=== PATIENT | male | born 1965 | race Caucasian/White ===

== ENCOUNTER 2024-01-19 12:06 | Outpatient (OUT) | payer OTHER, SELFPAY ==
[2024-01-19 12:53] LABS: Chol HDL Ratio 3.9; Cholesterol 161 mg/dL (<=200); HDL Cholesterol 41 mg/dL (40-60); LDL Cholesterol Calculated 97.4 mg/dL; Triglycerides 113 mg/dL (<=150); VLDL CHOLESTEROL 22.6 mg/dL
[2024-01-19 13:21] LABS: Prostate Specific Antigen Scrn 1.09 ng/mL (<=4.00)
== END 2024-01-19 12:07 | disposition home or self-care (01) ==
LOC: LAB 12:10
PROVIDERS: PCP Family Medicine; Visit Provider Family Medicine
DX: Z00.00 Encounter for general adult medical examination without abnormal findings (principal); Z12.5 Encounter for screening for malignant neoplasm of prostate
CPT/HCPCS: 36415; 80061; G0103

== ENCOUNTER 2025-01-24 14:03 | Outpatient (OUT) | payer OTHER, SELFPAY ==
--- OUTSIDE RECORDS SUMMARY | 2025-01-24 14:10 | XMS_ITS | Clinical Summary ---
Author Organization [facility] Healthcare Address [address] [place] [address] Care Team Providers Care Heel Attacher Name Role Phone Unavailable Primary Care Provider Unavailabl e Social History Tobacco UseTypesPacks/DayYears UsedDateSmoking Tobacco: Never AssessedSex and Gender InformationValueDate RecordedSex Assigned at BirthNot on fileLegal Sex Male05/18/2022 6:34 PM EDTGender IdentityNot on fileSexual OrientationNot on file Last Filed Vital Signs Vital SignReadingTime TakenCommentsBlood Wjhxijuv361/68003/30/2017 12:00 PM EST Pulse--Temperature--Respiratory Rate--Oxygen Saturation--Inhaled Oxygen Concentration--Dtiqbp11.6 kg (171 lb)03/30/2017 12:00 PM VIXVziirn017.2 cm (5' 7 )03/30/2017 12:00 PM ESTBody Mass Index26.78003/30/2017 12:00 PM EST Plan of Treatment Not on file
--- OUTSIDE RECORDS SUMMARY | 2025-01-24 14:10 | XMS_ITS | Clinical Summary ---
Author Organization [facility] Address [address], [address] [place] [address] Care Team Providers Care Asbestos Abatement Technician Name Role Phone Unavailable Primary Care Provider Unavailabl e Allergies No known active allergies Medications No known medications Family History Medical HistoryRelationNameCommentsHeart DiseaseMaternal UncleRelationNameStatus CommentsMaternal Uncle Social History Tobacco UseTypesPacks/DayYears UsedDateSmoking Tobacco: NeverAlcohol UseStandard Drinks/WeekCommentsNo0 (1 standard drink = 0.6 oz pure alcohol)Sex and Gender InformationValueDate RecordedSex Assigned at BirthNot on fileLegal SexMale 04/15/2012 5:50 PM ESTGender IdentityNot on fileSexual OrientationNot on file Last Filed Vital Signs Vital SignReadingTime TakenCommentsBlood Lghfrdlk773/76003/30/2016 8:15 AM EST Tzalp283803/30/2016 8:15 AM YNGBaytjgxsgst37.6 ??C (97.9 ??F)03/30/2016 8:15 AM ESTRespiratory Lsuk069703/30/2016 8:15 AM ESTOxygen Ibsiicikki54%03/30/2016 8:15 AM ESTInhaled Oxygen Concentration--Nasvru35.5 kg (162 lb)03/29/2016 7:28 PM EST Eszdyi127.2 cm (5' 7 )03/29/2016 7:28 PM ESTBody Mass Index25.37003/29/2016 7:28 PM EST Plan of Treatment Not on file Insurance Advance Directives * Full Code (Latest Code Status on File) Date ActivatedDate InactivatedComments03/29/2016 11:26 PM03/30/2016 7:38 PM
--- OUTSIDE RECORDS SUMMARY | 2025-01-24 14:12 | XMS_ITS | CCD ---
Author Organization [facility] Care Team Providers Care Launch Engineer Name Role Phone SLOANE, DR BERNARD Admitting Unavailable CRUZ, DR BERNARD Attending Unavailable GALLARDO, DR JAZMIN Ellis Primary Care Unavailable CRUZ, DR BERNARD Consulting Unavailable JENNIFER, DONALD Consulting Unavailable GALLARDO, DR JAZMIN Ellis Primary Care Unavailable PAY, DR LOCKWOOD Admitting Unavailable PAY, DR LOCKWOOD Attending Unavailable GRECHNY, REBECCA POWERS Consulting Unavailable Hawkins, Pattie Consulting Unavailable Kllance, Ayaka Consulting Unavailable SLOANE, DR BERNARD Admitting Unavailable CRUZ, DR BERNARD Attending Unavailable SAMI, DR JAZMIN Ellis Primary Care Unavailable CRUZ, DR BERNARD Consulting Unavailable CRUZ, DR BERNARD Admitting Unavailable CRUZ, DR BERNARD Attending Unavailable GALLARDO, DR JAZMIN Ellis Primary Care Unavailable CRUZ, DR BERNARD Consulting Unavailable MISC, DR CAMPOS Admitting Unavailable MISC, DR CAMPOS Attending Unavailable SAMI, DR JAZMIN Ellis Primary Care Unavailable MISC, DR CAMPOS Consulting Unavailable Gallardo, Jazmin Unavailable Problems Active Problems Problem ClassificationProblemDateDocumented DateEpisodic/ChronicDiverticulosis and diverticulitis (2 sources)Diverticulosis of intestine, part unspecified, without perforation or abscess without bleeding; Translations: [Diverticular disease of colon]Onset: 34-19-6498AhszadeFbidyhunsnbcy symptoms and ill-defined conditions (1 source)Other specified urinary incontinence; Translations: [OTHER SPEC URINARY INCONTINENCE]Onset: 80-25-8311HsoyfckQoenafsv; including migraine (4 sources)Headache; including migraine; Translations: [HEADACHE UNSPECIFIED] Onset: 82-44-9781Fqquhtsxxac of prostate (5 sources)Benign prostatic hyperplasia with lower urinary tract symptoms; Translations: [BENIGN PROSTATIC HYPERPLASIA W/LUTS]Onset: 89-54-1967Wijyzbm Inflammatory conditions of male genital organs (1 source)Chronic prostatitis; Translations: [CHRONIC PROSTATITIS]Onset: 72-23-0723OqvfywpNitrzspslgqpw (1 source)Generalized enlarged lymph nodes; Translations: [GENERALIZED ENLARGED LYMPH NODES]Onset: 38-67-3018HepwdefhSwbrc diseases of kidney and ureters (1 source)Acquired renal cystic disease; Translations: [Cyst of kidney, acquired]EpisodicOther nervous system disorders (1 source)Paresthesia of skin; Translations: [PARESTHESIA OF SKIN]Onset: 57-52-4420MtzirwkrHodnf screening for suspected conditions (not mental disorders or infectious disease) (2 sources)Patient encounter status; Translations: [Encounter for screening for malignant neoplasm of prostate]11-00-8444IuppihpdBimytuvkdlb; intervertebral disc disorders; other back problems (1 source)Lumbar spondylosis; Translations: [Spondylosis without myelopathy or radiculopathy, lumbar region]ChronicUnclassified (1 source)CONTACT W/AND (SUSP) EXPOS COVID-19; Translations: [CONTACT W/AND (SUSP) EXPOS COVID-19]Onset: 02-20-2021 Past or Other Problems Problem ClassificationProblemDateDocumented DateEpisodic/ChronicGenitourinary symptoms and ill-defined conditions (8 sources)Other retention of urine; Translations: [Feeling of incomplete bladder emptying]Onset: 17-21-2795NlcgmvvtUvexlyz and fatigue (1 source)Other fatigue; Translations: [OTHER FATIGUE]Onset: 76-48-3989Ibxgwjjo Other diseases of kidney and ureters (1 source)Cyst of kidney, acquired; Translations: [CYST OF KIDNEY ACQUIRED] Onset: 85-04-1762Qxvurcnv Results Test NameValueInterpretationReference RangeFacilityCBC AUTO DIFFon 05-10-2021 BASO #0.0 103/ulNormal0.0-0.1[facility] HospitalComment on above:Performed By: #### CBC #### [facility] [address] [address] [address] Alana Fernandezsophils/100 WBC (Bld)0.3 %Normal0.2-2.0[facility] Comment on above:Performed By: #### CBC #### [facility] [address] [address] [address] Alana Wolfe #0.1 103/ulNormal0.0-0.7The [facility] HospitalComment on above: Performed By: #### CBC #### [facility] [address] [place] [address] Dr. Alana Cyrosinophils/100 WBC (Bld)1.0 %Normal0.9-7.0[facility] Comment on above:Performed By: #### CBC #### [facility] [address] [place] [address] Dr. Alana Cyrrythrocyte distribution width (RBC) [Ratio]12.1 %Cdugvd87.0-15.0 The [facility] HospitalComment on above:Performed By: #### CBC #### [facility] [address] [place] [address] Dr. Alana OconnorHematocrit (Bld) [Volume fraction]45.7 %Zstzwf74.0-54.0The [facility] HospitalComment on above:Performed By: #### CBC #### [facility] [address] [place] [address] Dr. Alana OconnorHemoglobin (Bld) [Mass/Vol]16.0 g/uLKymale83.0-18.0The [facility] Centerment on above:Performed By: #### CBC #### [facility] [address] [place] [address] Dr. Alana Patel #0.01 10e3/ulNormal0.00-0.03The [facility] HospitalComment on above:Performed By: #### CBC #### [facility] [address] [place] [address] Dr. Alana Patel %0.1 %Normal0.0-0.5The [facility] HospitalComment on above: Performed By: #### CBC #### [facility] [address] [place] [address] Dr. Alana Flores #1.8 103/ulNormal1.2-3.8The [facility] HospitalComment on above:Performed By: #### CBC #### [facility] [address] [place] [address] Dr. Alana Bondsmphocytes/100 WBC (Bld)24.8 %Sbxjdh15.5-60.0The [facility] HospitalComment on above:Performed By: #### CBC #### [facility] [address] [place] [address] Dr. Alana MoraUAL DIFF REQNONormalThe [facility] HospitalComment on above: Performed By: #### CBC #### [facility] [address] [place] [address] Dr. Alana العراقي (RBC) [Entitic mass]31.1 hsYaplgt56.9-34.0The [facility] HospitalComment on above:Performed By: #### CBC #### [facility] [address] [place] [address] Dr. Alana العراقي (RBC) [Mass/Vol]35.0 g/yPTnzwcg54.9-35.2The [facility] HospitalComment on above:Performed By: #### CBC #### [facility] [address] [place] [address] Dr. Alana العراقي (RBC) [Entitic vol]88.7 yUNioeiu00.0-94.0The [facility] HospitalComment on above:Performed By: #### CBC #### [facility] [address] [place] [address] Dr. Alana Howard #0.5 103/ulNormal0.3-0.8The [facility] HospitalComment on above:Performed By: #### CBC #### [facility] [address] [place] [address] Dr. Alana Zarateocytes/100 WBC (Bld)6.6 %Normal1.7-12.0[facility] Comment on above:Performed By: #### CBC #### [facility] [address] [place] [address] Dr. Alana Moon #4.9 103/ulNormal1.4-6.5The [facility] HospitalComment on above:Performed By: #### CBC #### [facility] [address] [address] [address] Alana OconnorNeutrophils/100 WBC (Bld)67.2 %Bdoaqk53.0-75.0The [facility] on above:Performed By: #### CBC #### [facility] [address] [place] [address] Dr. Alana OconnorPlatelet mean volume (Bld) [Entitic vol]10.6 fLNormal9.5-13.5The [facility] HospitalComment on above:Performed By: #### CBC #### [facility] [address] [place] [address] Dr. Alana OconnorPLT189 103/ilHvqwwq481-962Mjm [facility] on above: Performed By: #### CBC #### [facility] [address] [place] [address] Dr. Alana OconnorRBC5.15 106/ulNormal4.70-6.10The [facility] on above:Performed By: #### CBC #### [facility] [address] [place] [address] Dr. Alana OconnorWBC7.3 103/ulNormal4.0-11.0The [facility] on above: Performed By: #### CBC #### [facility] [address] [place] [address] Dr. Alana Argueta 45-22-1069UQJ [Mass/Vol]mg/LNormal<=1.0The [facility] on above:Performed By: #### CRP, CMP #### [facility] [address] [place] [address] Dr. Alana OconnorCT CSPINE WO CONon [id number] CSPINE WO CONEXAMINATION: CT CSPINE WO CON HISTORY: Paresthesia COMPARISON: None. TECHNIQUE: CT Cervical spine without IV contrast. Coronal and sagittal reformations were performed. Dose reduction techniques were achieved by using automated exposure control and/or adjustment of mA and/or kV according to patient size and/or use of iterative reconstruction technique. FINDINGS: Straightening of the normal cervical lordosis of age indeterminate origin. Vertebral body heights and alignments exhibit no fracture. The dens and lateral masses of C1 are symmetric. Age-related intervertebral disc space narrowing, endplate, uncovertebral and facet changes. No prevertebral soft tissue edema. No gross irregularity of the visualized skull base. The mastoid air cells are pneumatized. The airway and lung apices are unremarkable. No irregularity of the thoracic inlet. The visualized subcutaneous soft tissues are unremarkable. Scattered nondiagnostic left greater than right submandibular lymph nodes. IMPRESSION: Straightening of the normal cervical lordosis of age indeterminate origin. This may be nondiagnostic secondary to patient's positioning. Electronically authenticated by: AYAKA CHRISTIANSON Date: 2021-05-10 18:48NoMer[facility] [address] Board[facility] HospitalCT HEAD WO CONon [id number] HEAD WO CONNONCONTRAST CT SCAN OF THE HEAD CT HEAD WO CON HISTORY: HEADACHE TECHNIQUE: Multiple axial images are taken from the level the vertex down to the base of the skull without the use of IV contrast. Images were then reconstructed in the sagittal and coronal planes. This exam was performed according to our departmental dose-optimization program which includes use of Automated Exposure Control, adjustment of the mA and/or kV according to patient size and/or use of iterative reconstruction technique. COMPARISON: None. FINDINGS: Brain Parenchyma: No intracranial mass. No intracranial hemorrhage. Anthony-white matter within expected limits of normal for patient's age. Posterior fossa: Normal. Midline shift: None Extra-axial fluid collection: None Ventricles: Normal. Mastoid air cells: Normal. Sinuses: Normal. Cranium: No depressed skull fracture. Soft tissues: Normal. Orbits: Normal. IMPRESSION: No noncontrast CT evidence for acute intracranial pathology. Electronically authenticated by: PATTIE HAWKINS Date: 2021-05-10 18:47No[address] [facility] Boardman HospitalPROF 14(COMP METB)on 29-45-1630Kwulabt [Mass/Vol]4.1 g/dLNormal 3.5-5.0The [facility] HospitalComment on above:Performed By: #### CRP, CMP #### [facility] [address] [place] [address] Dr. Alana OconnorAlbumin/Globulin [Mass ratio]1.4 {ratio}NormalThe [facility] HospitalComment on above:Performed By: #### CRP, CMP #### [facility] [address] [address] [address] Alana Albarado [Catalytic activity/Vol]97 U/WVxrvqn46-469Mqs [facility] HospitalComment on above:Performed By: #### CRP, CMP #### [facility] [address] [address] [address] Alana FerreiraT [Catalytic activity/Vol]25 U/JKypqky38-40Cpa [facility] HospitalComment on above:Performed By: #### CRP, CMP #### [facility] [address] [address] [address] Alana Stevenson gap [Moles/Vol]10.2 mmol/LNormalThe [facility] Comment on above:Performed By: #### CRP, CMP #### [facility] [address] [address] [address] Alana OconnorAST [Catalytic activity/Vol]17 U/IBefeqb62-84Jmq [facility] HospitalComment on above:Performed By: #### CRP, CMP #### [facility] [address] [address] [address] Alana OconnorBilirubin [Mass/Vol]0.5 mg/dLNormal0.2-1.3[facility] Comment on above:Performed By: #### CRP, CMP #### [facility] [address] [address] [address] Alana OconnorCalcium [Mass/Vol]8.2 mg/dLCritically low8.4-10.2The [facility] HospitalComment on above:Performed By: #### CRP, CMP #### [facility] [address] [address] [address] Alana OconnorChloride [Moles/Vol]105 mmol/UQekfav65-107Xbk [facility] Comment on above:Performed By: #### CRP, CMP #### [facility] [address] [address] [address] Alana OconnorCO2 [Moles/Vol]26.4 mmol/NFpyuaz01.0-30.0[facility] Comment on above:Performed By: #### CRP, CMP #### [facility] [address] [address] [address] Alana OconnorCreatinine [Mass/Vol]1.02 mg/dLNormal0.66-1.25The [facility] HospitalComment on above:Performed By: #### CRP, CMP #### [facility] [address] [address] [address] Alana CyrGFR-AF MOROCCAN>60Normal>=60The [facility] HospitalComment on above:Performed By: #### CRP, CMP #### [facility] [address] [address] [address] Alana CyrGFR-NON AF MOROCCAN>60Normal>=60The [facility] HospitalComment on above:Performed By: #### CRP, CMP #### [facility] [address] [address] [address] Alana OconnorGlobulin (S) [Mass/Vol]3.0 g/dLNormalThe [facility] HospitalComment on above:Performed By: #### CRP, CMP #### [facility] [address] [address] [address] Alana OconnorGlucose [Mass/Vol]122 mg/dLCritically pmvo54-679Zou [facility] HospitalComment on above:Performed By: #### CRP, CMP #### [facility] [address] [address] [address] Alana OconnorPotassium [Moles/Vol]3.6 mmol/LNormal3.4-5.0[facility] Comment on above:Performed By: #### CRP, CMP #### [facility] [address] [address] [address] Alana OconnorProtein [Mass/Vol]7.1 g/dLNormal6.1-8.2[facility] Comment on above:Performed By: #### CRP, CMP #### [facility] [address] [address] [address] Alana OconnorSodium [Moles/Vol]138 mmol/WOjurmc937-719Cyd [facility] Comment on above:Performed By: #### CRP, CMP #### [facility] [address] [address] [address] Alana Ronquillo nitrogen [Mass/Vol]19.0 mg/dLNormal9.0-20.0The [facility] HospitalComment on above:Performed By: #### CRP, CMP #### [facility] [address] [address] [address] Alana Ronquillo nitrogen/Creatinine [Mass ratio]18.6 mg/mgNormalThe [facility] HospitalComment on above:Performed By: #### CRP, CMP #### [facility] [address] [place] [address] Dr. Alana Mazariegos RATE WESTERGRENon 88-69-9506ZJV RATE2 mm/hrNormal<=20The [facility] HospitalComment on above:Performed By: #### SEDR #### [facility] [address] [place] [address] Dr. Alana OconnorAmbulatory Clinical Summaryon [id number] Clinical Summary{[id number]}CD:[id number] [facility] Regional HospitalPatient Educationon 13-48-1510Podgymo EducationUrology Benign Prostatic Hyperplasia Benign prostatic hyperplasia (BPH) is an enlarged prostate gland that is caused by the normal agingprocess and not by cancer. The prostate is a walnut-sized gland that is involved in the production of semen. It is located in front of the rectum and below the bladder. The bladder stores urine and the urethra is the tube that carries the urine out of the body. The prostate may get bigger as a man gets older. An enlarged prostate can press on the urethra. This can make it harder to pass urine. The build-up of urine in the bladder can cause infection. Back pressure and infection may progress to bladder damage and kidney (renal) failure. What are the causes? This condition is part of a normal aging process. However, not all men develop problems from this condition. If the prostate enlarges away from the urethra, urine flow will not be blocked. If it enlarges toward the urethra and compresses it, there will be problems passing urine. What increases the risk? This condition is more likely to develop in men over the age of 50 years. What are the signs or symptoms? Symptoms of this condition include: ? Getting up often during the night to urinate. ? Needing to urinate frequently during the day. ? Difficulty starting urine flow. ? Decrease in size and strength of your urine stream. ? Leaking (dribbling) after urinating. ? Inability to pass urine. This needs immediate treatment. ? Inability to completely empty your bladder. ? Pain when you pass urine. This is more common if there is also an infection. ? Urinary tract infection (UTI). How is this diagnosed? This condition is diagnosed based on your medical history, a physical exam, and your symptoms. Tests will also be done, such as: ? A post-void bladder scan. This measures any amount of urine that may remain in your bladder afteryou finish urinating. ? A digital rectal exam. In a rectal exam, your health care provider checks your prostate by putting a lubricated, gloved finger into your rectum to feel the back of your prostate gland. This exam detects the size of your gland and any abnormal lumps or growths. ? An exam of your urine (urinalysis). ? A prostate specific antigen (PSA) screening. This is a blood test used to screen for prostate cancer. ? An ultrasound. This test uses sound waves to electronically produce a picture of your prostate gland. Your health care provider may refer you to a specialist in kidney and prostate diseases (urologist). How is this treated? Once symptoms begin, your health care provider will monitor your condition (active surveillance or watchful waiting). Treatment for this condition will depend on the severity of your condition. Treatment may include: ? Observation and yearly exams. This may be the only treatment needed if your condition and symptoms are mild. ? Medicines to relieve your symptoms, including: ? Medicines to shrink the prostate. ? Medicines to relax the muscle of the prostate. ? Surgery in severe cases. Surgery may include: ? Prostatectomy. In this procedure, the prostate tissue is removed completely through an open incision or with a laparoscope or robotics. ? Transurethral resection of the prostate (TURP). In this procedure, a tool is inserted through theopening at the tip of the penis (urethra). It is used to cut away tissue of the inner core of the prostate. The pieces are removed through the same opening of the penis. This removes the blockage. ? Transurethral incision (TUIP). In this procedure, small cuts are made in the prostate. This lessens the prostate's pressure on the urethra. ? Transurethral microwave thermotherapy (TUMT). This procedure uses microwaves to create heat. The heat destroys and removes a small amount of prostate tissue. ? Transurethral needle ablation (TUNA). This procedure uses radio frequencies to destroy and removea small amount of prostate tissue. ? Interstitial laser coagulation (ILC). This procedure uses a laser to destroy and remove a small amount of prostate tissue. ? Transurethral electrovaporization (TUVP). This procedure uses electrodes to destroy and remove a small amount of prostate tissue. ? Prostatic urethral lift. This procedure inserts an implant to push the lobes of the prostate awayfrom the urethra. Follow these instructions at home: ? Take jocg-jqx-kctrvzl and prescription medicines only as told by your health care provider. ? Monitor your symptoms for any changes. Contact your health care provider with any changes. ? Avoid drinking large amounts of liquid before going to bed or out in public. ? Avoid or reduce how much caffeine or alcohol you drink. ? Give yourself time when you urinate. ? Keep all follow-up visits as told by your health care provider. This is important. Contact a health care provider if: ? You have unexplained back pain. ? Your symptoms do not get better with treatment. ? You d (more content not included)...[facility] HospitalUrology Office/Clinic Noteon [id number] Office/Clinic NoteChief Complaint F/u to TURP HPI Staff Pt is and here for f/u to TURP done 02/18/21. Previous dx of BPH with urinary obstruction, urine retention and poor stream. Dysuria: no Incomplete bladder emptying: no Hematuria: pt has not seen any blood for about a week and a half Frequency: no Urgency: no Nocturia: pt does not usually have to get up Stream: strong but it is like a double stream and sprays all over Leaking: occasionally Post void dripping: yes Wearing pads/ Depends: no Urge incontinence: no Stress incontinence: no Incontinence without Sensory Awareness: no Abdominal pain: no Flank pain: no Sexual complaints: no History of Present Illness Reviewed op and path report. Reviewed UA. There have been no associated fever, chills, flank pain or blood in the urine. Pt. denies any pain/burning with urination at this time. Review of Systems PHQ Score Initial Depression Screen Score: 0 ROS - Provider Constitutional: denies weight loss, denies hot flashes. Eyes: denies eye problems. Gastrointestinal: denies nausea, denies vomiting. Cardiovascular: denies chest pain or angina. Integumentary: no dryness Musculoskeletal: denies musculoskeletal symptoms. ENMT: denies otolaryngeal symptoms. Respiratory: no shortness of breath. Heme/Lymph: denies easy bleeding tendency, denies easy bruising tendency. Psychiatric: no confusion, no anxiety. Genitourinary: See HPI. Physical Exam Vitals & Measurements HR: 75(Peripheral) RR: 16 BP: 142/89 HT: 170.0 cm HT: 170 cm WT: 78.0 kg WT: 78 kg BMI: 26.99 General Appearance: alert, no distress, well nourished, well developed male. Genitourinary: normal scrotum, normal testes, normal urethra, normal epididymis, normal vas deferens/spermatic cord. Flank Pain: none. Bladder: nonpalpable. Assessment/Plan 1. BPH with urinary obstruction (N40.1: Benign prostatic hyperplasia with lower urinary tract symptoms) S/p TURP 02/18/21. The pathology report was reviewed with the patient in detail today. There is no evidence of malignancy and no further evaluation of the tissue removed is planned. All questions were answered and the report discussed in terms that the patient could understand. Occ. Spraying stream and difficulty emptying completely. Alfuzosin ER 10mg qd. Discussed the medication side effects, and the patient will monitor closely for these, as well as for symptom improvement. If severe side effects occur, the medication should be stopped and the office notified. Abena Guerrero. PSA drawn in 12/2019 - 0.76. All questions/concerns were discussed. Pt. to call the office if heencounters any issues prior. Pt. acknowledges understanding. 2. Urinary retention (R33.9: Retention of urine, unspecified) Today's PVR - 158ml. vs 486ml previously before turp. Other obstructive and reflux uropathy (N13.8: Other obstructive and reflux uropathy) I have reviewed the previous health record information and history for this pt. from Dr. Cruz. Follow-up With When Contact Information SLOANE MOSHER, Jacoby Andrade, URL [address] [place] [address] [place] [address]- [phone] Additional Instructions: 3mos. pvr Patient Education Benign Prostatic Hyperplasia I, Cailin Ward , personally scribed for Dr. Cruz on 03/19/2021 12:04:04. . Documentation recorded by the scribe, Cailin Ward, accurately reflects the services(s) I performed and decisions made by me. Authenticated by Dr. Cruz on 03/19/2021 12:06:13. Problem List/Past Medical History Ongoing BPH with urinary obstruction Diverticulosis Fatigue Lumbar spondylosis Poor urinary stream Renal cyst, left Urgency incontinence Urinary retention Historical No qualifying data Procedure/Surgical History Transurethral resection of prostate (02/18/2021), Colonoscopy, Hernia repair, Vasectomy. Medications No active medications Allergies No Known Allergies Social History Tobacco Never (less than 100 in lifetime) Tobacco Use:., 03/19/2021 Family History Emphysema: Father. Heart disease: Mother. Immunizations Vaccine Date Status Comments SARS-CoV-2 (COVID-19) Ad26 vaccine - Not Given Postpone due to refusal Lab Results Ambulatory Point of Care Results Bilirubin Urine Dipstick: Negative (03/19/21 11:04:00) Blood Urine Dipstick: 1+ Small (03/19/21 11:04:00) Glucose Urine Dipstick: Negative (03/19/21 11:04:00) Ketones Urine Dipstick: Negative (03/19/21 11:04:00) Leukocytes Urine Dipstick: 1+ Small (03/19/21 11:04:00) Nitrite Urine Dipstick: Negative (03/19/21 11:04:00) Protein Urine Dipstick: Negative (03/19/21 11:04:00) Specific [place] Urine Dipstick: 1.025 (03/19/21 11:04:00) Urine Appearance Urine Dipstick: Clear (03/19/21 11:04:00) Urine Color Urine Dipstick: Yellow (03/19/21 11:04:00) Urobilinogen Urine Dipstick: Normal 0.2-1 EU/dl (03/19/21 11:04:00) pH Urine Dipstick: 5 (03/19/21 11:04:00)[facility] HospitalComment on above:Result Comment: Electronically Signed By: SLOANE MOSHER, Jacoby Andrade\.br\Date and Time Signed: 03/19/21 12:06 EST\.br\Electronically Co-Signed By: Cailin Ward MA\.br\Date and Time Co-Signed: 03/19/2211:04 ESTFormson 27-52-4168Hlfka [id number]#1.00CD:[address] [place], [place] [id number]#1.00CD:[address] [place], [place] [address]Pathology Noteon 28-75-9963Gzckisnci Note [id number]#1.00CD:[address] [place], [place] [address]Ambulatory Clinical Summaryon 78-29-3839Umrvvdrjqy Clinical Summary {1w-p5-97-34-80-68-7o-2s-yk-g6-j8-kc-e1-26-18-cf}CD:[id number] [facility] Regional HospitalOperative Reporton 21-12-2993Srerbmhzj Report [id number]#1.00CD:[address] [place] [address] Reportson 69-06-6370Lml Reports [id number]#1.00CD:[address] [place] [address] [id number]#1.00CD:[address] [place], [place] [address]Covid-19 PCR (CVDTBH)on 22-63-5111ONQL-CoV-2 (COVID-19) RNA GOLDIE+probe Ql (Unsp spec)Not detectedNormalNOT DETECTEDThe [facility] Comment on above:Result Comment: This test is not yet approved or cleared by the [place] FDA. When there are no FDA-approved or cleared tests available, and other criteria are met, FDA can make tests available under an emergency access mechanism called an Emergency Use Authorization (EUA). The EUA for this test is supported by the Pilling Machine Operator of Health and Human Service's (HHS's) declaration that circumstances exist to justify the emergency use of in vitro diagnostics for the detection and/or diagnosis of the virus that causes COVID- 19. This EUA will remain in effect (meaning this test can be used) for the duration of the COVID-19 declaration justifying emergency of IVDs, unless it is terminated or revoked by FDA (after which the test may no longer be used). When diagnostic testing is negative, the possibility of a false negative should be considered in the context of a patient's recent exposures and the presence of clinical signs and symptoms consistent with SARS-CoV-2.Performed By: #### CVDTBH #### [facility] [address] [place] [address] Dr. Alana Melissa Reportson 87-45-3802Rxg Reports [id number]#1.00CD:127NormalFisher [facility] AUTO DIFFon 51-57-6311LOSM #0.0 103/ulNormal0.0-0.1The [facility] HospitalComment on above:Performed By: #### CBC #### [facility] [address] [place] [address] Dr. Alana OconnorBasophils/100 WBC (Bld)0.3 %Normal0.2-2.0The [facility] Comment on above:Performed By: #### CBC #### [facility] [address] [place] [address] Dr. Alana Wolfe #0.1 103/ulNormal0.0-0.7The [facility] HospitalComment on above: Performed By: #### CBC #### [facility] [address] [address] [address] Alana Cyrosinophils/100 WBC (Bld)1.1 %Normal0.9-7.0[facility] Comment on above:Performed By: #### CBC #### [facility] [address] [place] [address] Dr. Alana Cyrrythrocyte distribution width (RBC) [Ratio]13.1 %Gtsfof95.0-15.0 The [facility] HospitalComment on above:Performed By: #### CBC #### [facility] [address] [place] [address] Dr. Alana OconnorHematocrit (Bld) [Volume fraction]47.3 %Rdnzyx16.0-54.0The [facility] HospitalComment on above:Performed By: #### CBC #### [facility] [address] [place] [address] Dr. Alana OconnorHemoglobin (Bld) [Mass/Vol]16.3 g/iATgjabh42.0-18.0The [facility] HospitalComment on above:Performed By: #### CBC #### [facility] [address] [place] [address] Dr. Alana Patel #0.02 10e3/ulNormal0.00-0.03The [facility] HospitalComment on above:Performed By: #### CBC #### [facility] [address] [place] [address] Dr. Alana OconnorIG %0.3 %Normal0.0-0.5The [facility] Centerment on above: Performed By: #### CBC #### [facility] [address] [place] [address] Dr. Alana BondsMPH #1.6 103/ulNormal1.2-3.8The [facility] HospitalComment on above:Performed By: #### CBC #### [facility] [address] [place] [address] Dr. Alana Bondsmphocytes/100 WBC (Bld)24.7 %Iqlkbf76.5-60.0The [facility] HospitalComment on above:Performed By: #### CBC #### [facility] [address] [place] [address] Dr. Alana Rodrigez DIFF REQNONormalThe [facility] HospitalComment on above: Performed By: #### CBC #### [facility] [address] [place] [address] Dr. Alana العراقي (RBC) [Entitic mass]30.8 bjWxiead93.9-34.0The [facility] HospitalComment on above:Performed By: #### CBC #### [facility] [address] [place] [address] Dr. Alana العراقي (RBC) [Mass/Vol]34.5 g/aNHmirfd55.9-35.2The [facility] HospitalComment on above:Performed By: #### CBC #### [facility] [address] [place] [address] Dr. Alana العراقي (RBC) [Entitic vol]89.2 kIOcrnfh07.0-94.0The [facility] HospitalComment on above:Performed By: #### CBC #### [facility] [address] [place] [address] Dr. Alana Howard #0.4 103/ulNormal0.3-0.8The [facility] HospitalComment on above:Performed By: #### CBC #### [facility] [address] [place] [address] Dr. Alana Zarateocytes/100 WBC (Bld)6.3 %Normal1.7-12.0[facility] Comment on above:Performed By: #### CBC #### [facility] [address] [place] [address] Dr. Alana Moon #4.3 103/ulNormal1.4-6.5The [facility] Centerment on above:Performed By: #### CBC #### [facility] [address] [place] [address] Dr. Alana Jamesutrophils/100 WBC (Bld)67.3 %Noyfbq02.0-75.0The [facility] HospitalComment on above:Performed By: #### CBC #### [facility] [address] [address] [address] Alana OconnorPlatelet mean volume (Bld) [Entitic vol]11.0 fLNormal9.5-13.5The [facility] HospitalComment on above:Performed By: #### CBC #### [facility] [address] [address] [address] Alana OconnorPLT179 103/qhDxvcny852-343Yby [facility] HospitalComment on above: Performed By: #### CBC #### [facility] [address] [place] [address] Dr. Alana OconnorRBC5.30 106/ulNormal4.70-6.10The [facility] HospitalComment on above:Performed By: #### CBC #### [facility] [address] [place] [address] Dr. Alana OconnorWBC6.4 103/ulNormal4.0-11.0The [facility] HospitalComment on above: Performed By: #### CBC #### [facility] [address] [place] [address] Dr. Alana OconnorPROF CHEM 8 (BAS METB)on 14-91-1876Oyteq gap [Moles/Vol]10.1 mmol/LNormalThe Marion HospitalComment on above:Performed By: #### CBC #### [facility] [address] [place] [address] Dr. Alana OconnorCalcium [Mass/Vol]8.7 mg/dLNormal8.4-10.2[facility] Comment on above:Performed By: #### CBC #### [facility] [address] [place] [address] Dr. Alana OconnorChloride [Moles/Vol]103 mmol/NIrnegc54-125Rks [facility] Comment on above:Performed By: #### CBC #### [facility] [address] [place] [address] Dr. Alana OconnorCO2 [Moles/Vol]30.3 mmol/LCritically high22.0-30.0The [facility] HospitalComment on above:Performed By: #### CBC #### [facility] [address] [address] [address] Alana OconnorCreatinine [Mass/Vol]0.81 mg/dLNormal0.66-1.25The [facility] HospitalComment on above:Performed By: #### CBC #### [facility] [address] [address] [address] Alana CyrGFR-AF MOROCCAN>60Normal>=60The [facility] HospitalComment on above:Performed By: #### CBC #### [facility] [address] [address] [address] Alana CyrGFR-NON AF MOROCCAN>60Normal>=60The [facility] HospitalComment on above:Performed By: #### CBC #### [facility] [address] [address] [address] Alana OconnorGlucose [Mass/Vol]97 mg/oFHolymb02-243Bei [facility] Comment on above:Performed By: #### CBC #### [facility] [address] [address] [address] Alana OconnorPotassium [Moles/Vol]4.4 mmol/LNormal3.4-5.0[facility] Comment on above:Performed By: #### CBC #### [facility] [address] [address] [address] Alana OconnorSodium [Moles/Vol]139 mmol/SCzgmyg729-230Uxj [facility] Comment on above:Performed By: #### CBC #### [facility] [address] [address] [address] Alana OconnorUrea nitrogen [Mass/Vol]13.0 mg/dLNormal9.0-20.0The [facility] HospitalComment on above:Performed By: #### CBC #### [facility] [address] [address] [address] Alana OconnorUrea nitrogen/Creatinine [Mass ratio]16.0 mg/mgNormalThe Marion HospitalComment on above:Performed By: #### CBC #### [facility] [address] [place] [address] Dr. Alana OconnorPROTIMEon 80-70-0512ZAT Coag (PPP) [Relative time]0.98 {INR} NormalGood Samaritan HospitalComment on above:Performed By: #### CBC #### [facility] [address] [place] [address] Dr. Alana Rosales GUIDELINESSEE BELOWWright-Patterson Medical CenterComment on above:Result Comment: DESIRED INR: 2.0 - 3.0 CONDITIONS NOT LISTED BELOW 2.5 - 3.5 FOR PROSTHETIC HEART VALVE REPLACEMENT 2.5 - 3.5 RECURRENT THROMBOSIS Performed By: #### CBC #### [facility] [address] [place] [address] Dr. Alana OconnorPT Coag (PPP) [Time]10.6 sNormal9.0-11.6[facility] Comment on above:Performed By: #### CBC #### [facility] [address] [place] [address] Dr. Alana Palma 03-45-5539fQPE Coag (Bld) [Time]27.1 tEekcqs77.3-36.2The [facility] HospitalComment on above:Performed By: #### PT, PTT #### [facility] [address] [place] [address] Dr. Alana OconnorPre-Authorization for Medical Treatmenton 41-65-7345Koz- Authorization for Medical Treatment [id number]#1.00CD:RobbyEast [facility] Regional HospitalPhysician Orderon 33-05-9469Sznjftdoh Order [id number]#1.00CD:[address] [place], [place] [address]IntraOperative Documentson 24-13-8859CuptgRuyxvegzm Documents [id number]#1.00CD:[address] [place], [place] [address]Coding Summary.on 49-15-5372Oyvmki Summary. CD:[id number]:[id number]+PGhlYWQ+PB1RAISpP95agFFasW4XW0cEWE3RXJLEMZQCCV4PLO6sa NQ5IShmH2QgdmHk [file] ZTog (more content not included)...[facility] HospitalConsent for Procedure/Surgeryon 74-78-3012Ovymvsz for Procedure/Surgery [id number]#1.00CD:127[facility] HospitalConsent for Procedure/Surgery [id number]#1.00CD:[address] [place], [place] [address]Discharge Documentationon 29-99-3362Rqqhsbnog Documentation [id number]#1.00CD:[address] [place], [place] [address]IntraOperative Documentson 05-55-9176DgxsaHwhbhvalc Documents [id number]#1.00CD:[address] [place], [place] [address]IntraOperative Documents [id number]#1.00CD:[address] [place], [place] [address]Lab Reportson 47-01-9524Fwk Reports [id number]#1.00CD:[address] [place], [place] [address]Consent for Treatmenton 08-45-7488Udpxdmv for Treatment [id number]#1.00CD:[address] [place], [place] [address]Main OR Intraoperative Recordon 56-19-7217Chim OR Intraoperative Record IntraOp Document Type FTURO Summary Primary Physician: Jacoby CRUZ MD Finalized Date/Time: 12/29/20 09:42:32 Pt. Name: AYAKA HOANG/Sex: 1965 Male Med Rec #: [id number] Physician: Jacoby CRUZ MD Financial #: [id number] Pt. Type: O Room/Bed: / Admit/Disch: 12/29/20 07:22:21 - Institution: Case Times FTURO Entry 1 Patient Times In Room 12/29/20 09:29:00 Out Room 12/29/20 09:46:00 Procedure Times Start 12/29/20 09:32:00 Stop 12/29/20 09:42:00 Anesthesia Times Last Modified By: Noam REYNOSO, Elisabeth DENNIS 12/29/20 09:42:07 Case Attendance FTURO Entry 1 Entry 2 Entry 3 Case Attendee SLOANE MOSHER, Jacoby Santacruz RN, CNOR, Tim MENDEZ, Hallie Barber Role Performed Surgeon - Primary Dairy Department Manager - Primary Scrub - Primary Time In 12/29/20 09:29:00 12/29/20 09:29:00 12/29/20 09:29:00 Time Out 12/29/20 09:46:00 12/29/20 09:46:00 12/29/20 09:46:00 Procedure CYSTOSCOPY LOCAL(.) CYSTOSCOPY LOCAL(.) CYSTOSCOPY LOCAL(.) Comments Last Modified By: Noam RN, CNOR, Noam RN, BOBBYOR, Noam REYNOSO, JEANNIE, Elisabeth 12/29/20 Elisabeth 12/29/20 Elisabeth 12/29/20 09:42:09 09:42:09 09:42:09 Surgical Procedures FTURO Entry 1 Procedure Description Procedure CYSTOSCOPY LOCAL Modifiers . Surgeon Description cysto Primary Procedure Yes Primary Surgeon Jacoby CRUZ MD Start 12/29/20 09:32:00 Stop 12/29/20 09:42:00 Anesthesia Type Local Surgical Service Urology Wound Class 2 - Clean-Contaminated Last Modified By: Noam REYNOSO, Elisabeth DENNIS 12/29/20 09:42:12 General Case Data FTURO Pre-Care Text: Classifies surgical wound, implements aseptic technique, initiates traffic control Entry 1 Case Information OR URO 1 FT Case Level None Wound Class 2 - Clean-Contaminated Specialty Urology Preop Diagnosis BPH W/OBSTRUCTION, Postop Same As Preop No URINARY RETENTION, POOR URINE STREAM Postop Diagnosis BPH W/OBSTRUCTION, Outcomes Met? Yes URINARY RETENTION, Last Modified By: JEANNIE Santacruz RN, Ruthann 12/29/20 06:41:17 Post-Care Text: The patient is free from signs and symptoms of infection EU IntraOp - FTURO Pre-Care Text: Implements protective measures prior to operative or invasive procedure, confirms identity before the operative or invasive procedure, verifies operative procedure, surgical site, and laterality Entry 1 EU Perioperative Protocols Procedure(s) CYSTOSCOPY LOCAL(.) Patient Identity Birthday, ID Band Verified (select at Check, Patient least 2): Participation Consents / H and P HandP, Surgery/Procedure Operative Site N/A Verified Consent Marking Verified Surgical Site Yes Laterality Verified n/a Verified Procedure Verified Yes Correct Patient Yes Position Verified Availability Equipment, Medication Time Out SLOANE MOSHER, Jacoby Andrade, Verified (If Participants JEANNIE Santacruz RN, Applicable) Tim Barber CST, Gwen E Time Out Complete 12/29/20 09:31:00 Allergies Reviewed? Yes Allergies Reviewed Self/Patient With Body Position Supine Prep Area penis Prep Agents Betadine Solution Skin. Condition Unable to Visualize Additional None Specimens Collected Vitals - EU Blood Pressure 144/84 Pulse 67 bpm Respirations SPO2 EBL 0 IandO - EU Total Intake 0 mL Total Output 0 mL Outcomes Met? Yes Last Modified By: JEANNIE Santacruz RN, Ruthann 12/29/20 09:30:43 Post-Care Text: The patient is free from signs and symptoms of injury caused by extraneous objects Sign Out FTURO Entry 1 Before Patient Leaves OR Nurse verbally Yes Nurse verbally n/a confirms with the confirms with the team the name of team that the procedure(s) instrument, sponge, recorded and needle counts are correct (or N/A) Nurse verbally n/a Nurse verbally n/a confirms with the confirms with the team how the team whether there specimen is labeled are any equipment (including patient problems to be name), if applicable addressed Sign Out Complete 12/29/20 09:42:00 Last Modified By: JEANNIE Santacruz RN, Ruthann 12/29/20 09:42:24 Case Comments Finalized By: JEANNIE Santacruz RN, Ruthann Document Signatures Signed By: JEANNIE Santacruz RN, Ruthann 12/29/20 09:42[facility] HospitalMain OR Preoperative Recordon 57-12-0545Jwuc OR Preoperative RecordHolding Area Document Type FTURO Summary Primary Physician: Jacoby CRUZ MD Finalized Date/Time: 12/29/20 09:25:29 Pt. Name: AYAKA HOANG /Sex: 1965 Male Med Rec #: [id number] Physician: Jacoby CRUZ MD Financial #: [id number] Pt. Type: O Room/Bed: / Admit/Disch: 12/29/20 07:22:21 - Institution: Case Times Holding FTURO Pre-Care Text: Verifies consent for planned procedure, identifies individual values and wishes concerning care, includes family members in perioperative teaching Secures patient's records' belongings, and valuables, maintains patient's dignity and privacy, and maintains patient confidentiality Entry 1 In Holding 12/29/20 09:07:00 Outcomes Met? Yes Last Modified By: Daniel Park LPN 12/29/20 09:07:44 Post-Care Text: The patient participates in decisions affecting his or her perioperative plan of care The patient'sright to privacy is maintained Surgery Checklist FTURO Entry 1 Patient Birthday, ID Band Procedure History and Physical, Identification: Check, Patient Verification: Surgical Consent, With Participation Patient NPO after Midnight: n/a Complaints of Pain: No Skin Integrity Unable to Visualize Vitals - EU Blood Pressure 144/84 Pulse 67 bpm Respirations 16 br/min SPO2 RN Reviewed Yes Last Modified By: JEANNIE Santacruz RN, Ruthann 12/29/20 09:25:26 General Comments: Temp 36.3 Finalized By: JEANNIE Santacruz RN, Ruthann Document Signatures Signed By: Daniel Park LPN 12/29/20 09:10 JEANNIE Santacruz RN, Ruthann 12/29/20 09:25No[facility] Operative Reporton 21-27-7782Rhwdlqeeq ReportPatient: AYAKA HOANG Age: 55 years Sex: Male : 1965 Associated Diagnoses: None Author: Jacoby CRUZ MD Procedure Operative Information Details: Date/ Time: 12/29/2020 09:42:00. Pre-Op Dx: BPH w/ LUTS - N40.1, Urinary Retention - R33.9, Incomplete Bladder Emptying - R39.14. Post-Op Dx: Same. Anesthesia Type: Local. Procedure: Local Cystoscopy. Complications: None. Risks/Benefits/Informed Consent: Surgical risks, benefits, details of the procedure have been explained to the patient, Full informed consent has been obtained. Intraoperative Information Prepped: Patient is brought back to the endoscopy suite, Patient is placed in supine position, Patient prepped in the usual fashion with Betadine solution, 2% Xylocaine Jelly is placed per Urethra, After waiting several minutes the Cystoscope is introduced. The Urethra is: Normal. The Prostatic Urethra is: Obstructed, Median Lobe. The Bladder is: Abnormal, Trabeculated (Severe (3), no b.t. deep tics diffusely.). The ureteral orifices: Show efflux of clear urine. Devices Implanted: None. Removal: Cystoscope is removed, The patient tolerated it well. Postoperative Information Discharge: Patient is discharged home with antibiotic coverage, Follow up arranged.[facility] HospitalComment on above:Result Comment: Electronically Signed By: SLOANE MOSHER, Jacoby Armenta.br\Date and Time Signed: 12/29/20 09:43 EDTCULTURE URINEon 56-99-5183CKKFCYE URINECulture Observations: LIGHT GROWTH OF MIXED GENITAL HAMZAH. NO POTENTIAL PATHOGENS SEEN.NormalGood Samaritan HospitalComment on above:Performed By: #### URCX #### [facility] [address] [address] [address] 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 Gallardo. IPSS score 22. Pt is currently not taking any BPH medications at this time. Recent PSA 10/05/2019 and was at 0.76. Pt states that his urinary streamis real weak, and he does not feel empty. Pt states that he has a 45degree bend when he has erections, this has just come up in the past 4-5 months. Pt states that it is painful. S/P Vasectomy 22 years ago. Tamsulosin 0.4mg qd, pt had a reaction to this medication. PVR 486ml Dysuria: no pain, intermittent burning Incomplete bladder emptying: does not feel like he is emptying Hematuria: denies any blood in urine, UA is neg Frequency: pt is voiding every 3 hours or so Urgency: moderate sx when he stands up from sitting so long Nocturia: none to 1x Stream: weak stream, moderate hesitation, intermittent stream, no straining - but pt states its easier to empty when sitting Post void dripping: none Wearing pads/ Depends: _ Urge incontinence: intermittent Stress incontinence: none Incontinence without Sensory Awareness: none Abdominal pain: intermittent lower abdominal pain Sexual complaints: 45degree curve with erections that is painful, no blood in semen, no pain or burning with orgasms History of Present Illness Reviewed UA, psa, and referral. There have been no associated fever, chills, flank pain or blood in the urine. Pt. denies any pain/burning with urination at this time. Review of Systems ROS - Provider Constitutional: denies weight loss, denies hot flashes. Eyes: denies eye problems. Gastrointestinal: denies nausea, denies vomiting. Cardiovascular: denies chest pain or angina. Integumentary: no dryness Musculoskeletal: denies musculoskeletal symptoms. ENMT: denies otolaryngeal symptoms. Respiratory: no shortness of breath. Heme/Lymph: denies easy bleeding tendency, denies easy bruising tendency. Psychiatric: no confusion, no anxiety. Genitourinary: denies dysuria, denies hematuria, denies discharge, denies urinary frequency, deniesurinary hesitancy, denies nocturia, denies incontinence, denies genital sores, denies decreased libido, and denies erectile dysfunction. Physical Exam Vitals & Measurements HR: 67(Peripheral) RR: 18 BP: 141/96 HT: 170.0 cm HT: 170 cm WT: 78.0 kg WT: 78 kg BMI: 26.99 General Appearance: alert, no distress, well nourished, well developed male. Head: normocephalic . Eyes: normal orbit and globe. ENMT: normal examination of external ears. Chest: Lungs CTA, respirations non labored. Cardiovascular: regular rate and rhythm. Abdomen: soft, non distended, no tenderness, no mass or organomegaly, no hernia. Genitourinary: normal scrotum, normal testes, normal urethra, normal epididymis, normal vas deferens/spermatic cord. Flank Pain: none. Bladder: nonpalpable. Penis: normal shaft, normal glans. Prostate: normal prostate, estimated weight 30 gms, no hard nodule observed. Lymph Nodes: unremarkable palpation of the cervical area. Skin: warm, dry, no bruising. Psychiatric: cooperative, affect appropriate for age, normal judgement, euthymic mood. Assessment/Plan 1. BPH with urinary obstruction (N40.1: Benign prostatic hyperplasia with lower urinary tract symptoms) IPSS today - 22. Pt. has d/c Flomax 0.4mg qd due to an reaction. no urinary infections. Scheduling Cysto/Urodynamics. The risks and benefits for cystoscopy have been discussed. The risks include bleeding, infection, and irritation of the bladder and urinary channel, among others. The patient, afterbeing informed of procedural details and after questions have been answered, wishes to proceed. Full informed consent has been obtained. Will order Local anesthesia. ABX sent. PSA drawn in 12/2019 - 0.76. 2. Urinary retention (R33.9: Retention of urine, unspecified) PVR today - 486ml. 3. Poor urinary stream (R39.12: Poor urinary stream) Weak stream and intermittency. progressive over last 6-7 years. I have reviewed the previous health record information and history for this pt. from Dr. Cruz. Follow-up With When Contact Information SLOANE MOSHER, Jacoby Andrade, [address] [place] [address]- [phone] Additional Instructions: Patient Education Benign Prostatic Hyperplasia ICailin , personally scribed for Dr. Cruz on 12/11/2020 11:11:40. . Documentation recorded by the scribe, Cailin Ward, accurately reflects the services(s) I performed and decisions made by me. Authenticated by Dr. Cruz on 12/11/2020 11:13:45. Problem List/Past Medical History Ongoing Diverticulosis Fatigue Lumbar spondylosis Poor urinary stream Renal cyst, left Urgency incontinence Urinary retention Historical No qualifying data Procedure/Surgical History Colonoscopy, Hernia repair, Vasectomy. Medications No active medications Allergies No Known Allergies Fami (more content not included)...[facility] HospitalComment on above:Result Comment: Electronically Signed By: Lynda Tristan\Date and Time Signed: 12/18/20 11:15 EDTFormson 25-26-6530Fmpip [id number]#1.00CD:127[facility] Centercreenson 25-84-2097Qexfljv [id number]#1.00CD:127[facility] HospitalAmbulatory Clinical Summaryon 47-74-0579Twappsesof Clinical Summary {g6-26-bv-77-39-47-97-vj-ry-ml-55-8r-ed-5e-80-e7}CD:475752AryuoeXtiemlEast [facility] Regional HospitalPatient Educationon 55-75-8370Oohwaof EducationUrology Benign Prostatic Hyperplasia Benign prostatic hyperplasia (BPH) is an enlarged prostate gland that is caused by the normal agingprocess and not by cancer. The prostate is a walnut-sized gland that is involved in the production of semen. It is located in front of the rectum and below the bladder. The bladder stores urine and the urethra is the tube that carries the urine out of the body. The prostate may get bigger as a man gets older. An enlarged prostate can press on the urethra. This can make it harder to pass urine. The build-up of urine in the bladder can cause infection. Back pressure and infection may progress to bladder damage and kidney (renal) failure. What are the causes? This condition is part of a normal aging process. However, not all men develop problems from this condition. If the prostate enlarges away from the urethra, urine flow will not be blocked. If it enlarges toward the urethra and compresses it, there will be problems passing urine. What increases the risk? This condition is more likely to develop in men over the age of 50 years. What are the signs or symptoms? Symptoms of this condition include: ? Getting up often during the night to urinate. ? Needing to urinate frequently during the day. ? Difficulty starting urine flow. ? Decrease in size and strength of your urine stream. ? Leaking (dribbling) after urinating. ? Inability to pass urine. This needs immediate treatment. ? Inability to completely empty your bladder. ? Pain when you pass urine. This is more common if there is also an infection. ? Urinary tract infection (UTI). How is this diagnosed? This condition is diagnosed based on your medical history, a physical exam, and your symptoms. Tests will also be done, such as: ? A post-void bladder scan. This measures any amount of urine that may remain in your bladder afteryou finish urinating. ? A digital rectal exam. In a rectal exam, your health care provider checks your prostate by putting a lubricated, gloved finger into your rectum to feel the back of your prostate gland. This exam detects the size of your gland and any abnormal lumps or growths. ? An exam of your urine (urinalysis). ? A prostate specific antigen (PSA) screening. This is a blood test used to screen for prostate cancer. ? An ultrasound. This test uses sound waves to electronically produce a picture of your prostate gland. Your health care provider may refer you to a specialist in kidney and prostate diseases (urologist). How is this treated? Once symptoms begin, your health care provider will monitor your condition (active surveillance or watchful waiting). Treatment for this condition will depend on the severity of your condition. Treatment may include: ? Observation and yearly exams. This may be the only treatment needed if your condition and symptoms are mild. ? Medicines to relieve your symptoms, including: ? Medicines to shrink the prostate. ? Medicines to relax the muscle of the prostate. ? Surgery in severe cases. Surgery may include: ? Prostatectomy. In this procedure, the prostate tissue is removed completely through an open incision or with a laparoscope or robotics. ? Transurethral resection of the prostate (TURP). In this procedure, a tool is inserted through theopening at the tip of the penis (urethra). It is used to cut away tissue of the inner core of the prostate. The pieces are removed through the same opening of the penis. This removes the blockage. ? Transurethral incision (TUIP). In this procedure, small cuts are made in the prostate. This lessens the prostate's pressure on the urethra. ? Transurethral microwave thermotherapy (TUMT). This procedure uses microwaves to create heat. The heat destroys and removes a small amount of prostate tissue. ? Transurethral needle ablation (TUNA). This procedure uses radio frequencies to destroy and removea small amount of prostate tissue. ? Interstitial laser coagulation (ILC). This procedure uses a laser to destroy and remove a small amount of prostate tissue. ? Transurethral electrovaporization (TUVP). This procedure uses electrodes to destroy and remove a small amount of prostate tissue. ? Prostatic urethral lift. This procedure inserts an implant to push the lobes of the prostate awayfrom the urethra. Follow these instructions at home: ? Take rjsb-wfk-ezxmive and prescription medicines only as told by your health care provider. ? Monitor your symptoms for any changes. Contact your health care provider with any changes. ? Avoid drinking large amounts of liquid before going to bed or out in public. ? Avoid or reduce how much caffeine or alcohol you drink. ? Give yourself time when you urinate. ? Keep all follow-up visits as told by your health care provider. This is important. Contact a health care provider if: ? You have unexplained back pain. ? Your symptoms do not get better with treatment. ? You d (more content not included)...NormalTrihealth Bethesda Butler HospitalPhysician Referralon [id number] Referral [id number]:127NormalTrihealth Bethes[facility] Hospital Vital Signs Date TimeVital SignValuePerforming GxmljnvqzEywrgjyu82-27-2976 11:35-0500Body gyxqyn389.18 [facility]2024 11:35-0500Body mass index (BMI) [Ratio]29.6 kg/w7VoqzuppsfTrumbull Memorial Hospital11-15-2024 11:35-0500Body asnjng70.72 kgTrumbull Memorial Hospital11-15-2024 11:35-0500Diastolic blood yabqbasn42 mm[Hg][facility] 01-19-2024 11:35-0500Heart rate60 /minTrumbull Memorial Hospital 01-19-2024 11:35-0500Systolic blood fffiswfb720 mm[Hg][facility]11-10-2023 13:30-0500Body lbqkyr989.64 cmMarcia Sami Other [employer] Other 11-10-2023 13:30-0500Body mass index (BMI) [Ratio] 30.31 kg/s3Hecyer Sami Other [employer] Other 11-10-2023 13:30-0500Body .19 kgJocelinekayleenmorgan Sami Other [employer] Other 11-10-2023 13:30-0500Diastolic blood iqiavpsw54 mm[Hg] Jazmin Sami Other [employer] Other 11-10-2023 13:30-0500Systolic blood rygoixgi199 mm[Hg] Jazmin Gallardo Other [employer] Other Encounters Encounter DateEncounter TypeCare ProviderFacilityStart: 14-54-2916Soievgg [facility] status[facility]: 01-19[facility]2024 End: 55-14-2426thcnaljhvxYkwucvvgpOhio[facility] Work Phone: Start: 01-19-2024 End: 94-50-6143Pmzrevsdy for general adult medical examination without abnormal findingsUC [facility]: 01-19-2024 End: 53-81-2373Avjdydf encounter procedureUn[facility] Work Phone: Start: 32-64-9646Evg-patient / Non-visitFirjohnston memorial [facility] Work Phone: Start: 01-13-2023 End: 04-46-5621wxzahccaznPfwrvr Braun Other [employer] Other Start: 75-80-3778Jkbrtrhlk for general adult medical examination without abnormal findingsJazmin Driver [facility]: 77-96-6183Dghunbiv preventive med est patient 40-64yrsMemir BraunFPG [facility]: 05-10-2021 End: 31-61-9666raowzgyouiIU JAZMIN Ellis Caricility:H6Bfnzp: 57-01-1695Zlnmcbcbt for preprocedural laboratory examinationDR JACOBY [facility] Start: 02-18-2021 End: 33-50-3128lbcrauteubTW JACOBY CRUZFacility:O5Hixps: 02-15-2021 End: 88-81-1380htmvtwxmyoPH JACOBY CRUZFacility:I3Gqfch: 02-15-2021 End: 08-26-1725Ltezziefb for preprocedural laboratory examinationDR JACOBY CRUZFacility:E4Trftm: 38-33-8600Dohipzaep for preprocedural cardiovascular examinationDR JACOBY [facility]: 77-99-8639Rzngagtxs for preprocedural laboratory examinationDR JACOBY [facility]: 02-04-2021 End: 37-52-2603uhpbhbngmkRV JACOBY CRUZFacility:W5Pkabk: 02-04-2021 End: 15-40-3145Gghwjjldd for preprocedural cardiovascular examinationDR JACOBY CRUZFacility:Z3Fwpun: 12-25-2020 End: 41-72-4110wrnjtfacwgHK DOCTOR MISCFacility:H1 Plan of Treatment DateCare ActivityPremier Health [facility] Payers DatePayer CategoryPayerPolicy [id number] [id number] Health [id number] Health [id number] Social History DateTypeDetailFacilityUnknown if ever smokedNoJefferson Hospital [employer] [facility] [employer] Other Start: 11-89-2043Vgzaase smoking status NHISNever smoked tobacco (finding)[facility]: 09-15-0851Cje Male (finding)[facility]: 41-90-6508Wwz Assigned At [facility] Evaluation note 01-13-2023 Note Date & DxfzZfsrVhadoxuu94-03-2867 Evaluation note* Encounter Date Diagnosis Assessment Notes Treatment Notes Treatment Clinical Notes Jan, Well adult exam (ICD-10 - Z00.00 ) We have discussed the necessity of following up with PCP regularly as well as specialists, as needed. Discussed F/U with dentistry and optometry at least yearly. Discussed all preventative measures/ cancer screenings as applicable to this patient. Emphasized the importance of a reduced fat, low carb diet to promote heart health and controlled blood sugars. Reviewed social history and ensured patient is safe within the home today. Pt denies any abuse of alcohol, nicotine, caffeine or recreational drugs. I have ensured patient is of stable mental and physical health today. We have discussed appropriate F/U schedule as well as blood work and vaccinations that apply. All questions answered and p atient is sent home pleased, without concerns. [facility] [employer] Other History and physical note 12-31-2020 Note Date & AeswNwdyMoadhfwp55-36-1711 Note [id number]:127[facility] Clinical Note 12-29-2020 Note Date & RaxiZevxVslfyxzn07-52-0463 NoteCustom Cystoscopy ? Voiding after the procedure: there may be some pain, burning, urgency, frequency and blood tingedurine following the procedure. These symptoms usually resolve within 2-5 days. Drink the amount of fluid it takes to keep the urine pink to yellow or clear in color. Drinking enough water and fluids will help to ease any discomfort after your procedure. ? If you are having problems that seem out of the ordinary, please call. ? If unable to contact your physician and you feel it is an emergency, go to the nearest emergency room or call 911 ? Diet ? you may resume your normal diet. ? Activity ? you may resume your normal activities ? Call if you have a fever over 100 degrees.[facility] Evaluation note Note Date & TypeNoteFacilityEvaluation note* Diagnosis Onset Date Resolution Status Admit Date Screening PSA (prostate specific antigen ) acuteNovember 2023 11:25amWellness examinationacuteNov2023 11:25am [facility] Work Phone: History general Narrative - Reported Note Date & TypeNoteFacilityHistory general Narrative - Reported* Type Description Date Medical History Renal cyst, left Medical HistoryLumbar spondylosisMedical HistoryDiverticulosisSurgical History umbilical hernia pljzlv7841Qkcuulffqyepuqb Historysee surgical [facility] [employer] Other Summary Purpose Family History Relationship Condition Age at Onset Recorded Date/T fortino father Family history of emphysema Unknown motherHeart diseaseUnknown Advance Directives Advance Directive Response Recorded Date/ Time Advance Directives No January 11:24am Chief Complaint and Reason for Visit Chief Complaint Admit Date CC Adult Risk Stratification January 11:10am Wellness January 19, 2024 11:25am Reason for Visit Admit Date Screening PSA (prostate specific antigen ) January 19, 2024 11:25am Wellness examination January 19, 2024 11:25am Additional Source Comments (unrecognized sect ion and content) No Status Records FoundNo Status Records Found INFORMATION SOURCE (unrecogn ized section and content) DATE CREATED AUTHOR 06/29/2021 [facility] DATE CREATED AUTHOR AUTHOR'S ORGANIZ ATION 08/13/2021 [facility] REASON FOR VISIT (unrecogniz ed section and content) wellness Care Teams (unrecognized sec tion and content) Team Status: Active Member Role Status Dates Jazmin Gallardo MD Primary Care Provider Active Team Status: Active Member Role Status Ralph Gallardo MD Primary Care Provide r, Attending Provider Active Start: January 11, 2024 Team Status: Inactive Member Role Status Ralph Gallardo MD Primary Care Provide r, Attending Provider Active Start: January 19, 2024 End: January 19, 2024 Goals (unrecognized section and content) Goals may be documented in a n alternate section FOR RECORDS PERTAINING TO PATIENTS WHO ARE OR HAVE BEEN ENROLLED IN A CHEMICAL DEPENDENCY/SUBSTANCEABUSE PROGRAM, SOME INFORMATION MAY BE OMITTED. This clinical summary was aggregated from multiple sources. Caution should be exercised in using it in the provision of clinical care. This summary normalizes information from multiple sources, and as a consequence, information in this document may materially change the coding, format and clinical context of patient data. In addition, data may be omitted in some cases. CLINICAL DECISIONS SHOULD BE BASED ON THE PRIMARY CLINICAL RECORDS. [facility] [employer] [facility]. provides no warranty or guarantee of the accuracy or completeness of information in this document.
== END 2025-01-24 14:04 | disposition home or self-care (01) ==
PROVIDERS: PCP Family Medicine; Visit Provider Family Medicine
DX: Z12.5 Encounter for screening for malignant neoplasm of prostate (principal)
CPT/HCPCS: 36415; G0103